=== PATIENT | male | born 1940 | race Caucasian/White ===

== ENCOUNTER 2022-06-08 11:11 | Emergency (ER) | payer MEDICARE, BC ==
[2022-06-08 11:15] VITALS: BP 134/76; PULSE 98
[2022-06-08] MEDS: Iopamidol 755 Mg/ML 100 ML Bottle IVPUSH ONE (11:54)
[2022-06-08 11:58] LABS: PTT,PARTIAL THROMBOPLSTIN TIME 29.8 SEC (23.2-32.3)
== END 2022-06-08 13:24 | disposition home or self-care (01) ==
LOC: CC.ED 11:11
DX: N39.0 Urinary tract infection, site not specified (principal); I25.10 Atherosclerotic heart disease of native coronary artery without angina pectoris; E78.00 Pure hypercholesterolemia, unspecified; I10 Essential (primary) hypertension; E66.9 Obesity, unspecified; Z68.24 Body mass index [BMI] 24.0-24.9, adult; Z88.0 Allergy status to penicillin; Z88.8 Allergy status to other drugs, medicaments and biological substances; Z79.82 Long term (current) use of aspirin; Z79.899 Other long term (current) drug therapy; Z90.49 Acquired absence of other specified parts of digestive tract
CPT/HCPCS: 36415; 51798; 74177; 80053; 81001; 85025; 85610; 85730; 86850; 86900; 86901; 87086; 99284; Q9967

== ENCOUNTER 2022-07-24 07:28 | Emergency (ER) | payer MEDICARE, BC | END 2022-07-24 08:27 | disposition home or self-care (01) | LOC: CC.ED 07:28 | DX: T83.031A Leakage of indwelling urethral catheter, initial encounter (principal); I25.10 Atherosclerotic heart disease of native coronary artery without angina pectoris; I48.91 Unspecified atrial fibrillation; I10 Essential (primary) hypertension; E78.00 Pure hypercholesterolemia, unspecified; M19.90 Unspecified osteoarthritis, unspecified site; E03.9 Hypothyroidism, unspecified; E66.9 Obesity, unspecified; Z68.24 Body mass index [BMI] 24.0-24.9, adult; Z86.73 Personal history of transient ischemic attack (TIA), and cerebral infarction without residual deficits; Z88.0 Allergy status to penicillin; Z88.8 Allergy status to other drugs, medicaments and biological substances; Z79.82 Long term (current) use of aspirin; Z79.899 Other long term (current) drug therapy | CPT/HCPCS: 99283; 99284 ==